=== PATIENT | female | born 1970 | race African-American/Black ===

== ENCOUNTER → 2017-02-10 | Outpatient (CLI) | payer BC ==
--- NOTE | ~2017-02-10 | MR53 ---
[facility] A Service of [facility] & [facility] RADIOLOGY TEXT RESULTS PATIENT: DAYANARA WHITE LOCATION: [facility] : 70 UNIT #: [id number] AGE: [address]: Nicolas Yoo MD SEX: F ORDER DR: [id number] [facility] [address] [place], [place] [address] [id number] O MR#: [id number] Acc #: [id number] NAME: DAYANARA WHITE : 1970 SEX: F STUDY DATE/TIME: 02/10/2017 15:12 UNIT: [facility] ROOM: STUDY DESCRIPTION: MR Finger WWo Contrast Rt Attending Physician: Nicolas Yoo M.D. Referring Physician: Nicolas Yoo M.D. Ordering Physician: Nicolas Yoo M.D. Primary Care Physician: Nicolas Yoo M.D. MRI CENTER REPORT This report is preliminary unless electronic signature is present. EXAM MRI right long (middle) finger, 02/10/2017 and 02/16/2017. HISTORY Order states third finger pain. 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 Pain in DIP joint and distal phalanx of third finger since November 29, 2016. Surgery end November 29, 2016, with persistent pain since the beginning of November 2016. COMPARISON Office notes of [facility], 01/03/2017, right third finger radiographs 11/22/2016, right hand radiographs 11/24/2016. The office notes state "recheck of cellulitis. The patient was previously evaluated during a hospitalization (follow up [facility]). 46-year-old [place] female recently admitted to [facility] for abscess, paronychia, osteomyelitis of the distal phalanx. Patient underwent I and D, treatment with IV antibiotics and p.o. antibiotics. The patient has not been able to work." FINDINGS Initial imaging was performed on 02/10/2017 without and with IV contrast. Due to optimal signal at the PIP joint level and diminished signal in the area of interest at the distal phalanx, the patient returned at no additional charge for non-contrast imaging to optimize signal in the area of interest. The operative note is not available for correlation. There is skin and subcutaneous space enhancement of the distal soft tissue tuft of the long finger concerning for cellulitis. There is also underlying marrow edema with T1 marrow replacement and poor definition of the volar cortex of the tuft of the distal phalanx. Findings are most STS. [facility] A Service of [facility] RADIOLOGY TEXT RESULTS PATIENT: DAYANARA WHITE LOCATION: [facility] : 70 UNIT #: [id number] AGE: [address]: Nicolas Yoo MD SEX: F ORDER DR: suggestive of osteomyelitis. Operative intervention can result in bone and soft tissue signal changes which could persist in the absence of infection. Correlation with clinical exam and operative report is recommended. There is no evidence of a fluid collection to suggest an abscess. Flexor and extensor tendons are intact. There is mild enhancement of the nail in the nail bed as a nonspecific finding. There is no evidence of septic arthritis at the DIP joint. The remainder of the long finger is normal. IMPRESSION 1. Findings supportive of soft tissue and bone infection of the distal long finger with involvement of the tuft of the distal phalanx. There is no evidence of abscess or septic arthritis. Soft tissue and bony signal changes related to the surgery could potentially have a similar appearance; the operative report is not available at this time. Correlation with physical exam and specific operative procedure performed is recommended. 2. Flexor and extensor tendons of the middle finger are intact. Dictated by... Jessica Ware M.D. THIS IS AN ELECTRONICALLY VERIFIED REPORT Jessica Wrae M.D. at 02/20/2017 8:59 AM GERMÁN/berto TD: 02/18/2017 15:26 JOB #: [id number] MRI CENTER REPORT Page 1 of 1 COPY
[2017-02-10 15:11] LABS: POC - GFR >60.0 mL/min (>60)
== END | disposition home or self-care (01) ==
LOC: CMRI 13:34
PROVIDERS: Family Medicine
DX: M79.644 Pain in right finger(s) (principal)
CPT/HCPCS: 73220; 82565; A9577